=== PATIENT | female | born 1980 | race Caucasian/White ===

== ENCOUNTER 2017-03-28 23:24 | Emergency (ER) | payer SELFPAY ==
[~2017-03-28] VITALS: Ht 162.6 cm; Wt 96.0 kg
[2017-03-28 23:26] VITALS: BP 122/69; PULSE 84; RESP 16; TEMP 97.7; O2SAT 98
[2017-03-28] MEDS ORDERED: AMOX500T PO (23:56)
--- NOTE | 2017-03-28 23:59 | PD ---
HPI Chief Complaint: ENT Complaint Time Seen by Provider: 23:49 Travel History International Travel<30 days: No Contact w/Intl Traveler<30days: No Traveled to known affect area: No History of Present Illness HPI 37-year-old white female presents to emergency department complains of left facial swelling and swelling inside of her mouth over the last 3 days. She states that she's been on Cipro for the past week for a sinus infection. Her symptoms initially were sinus congestion and a runny nose and general malaise. She is on one more week of Cipro. In the last 3 days she developed pain in her left maxilla. She has poor dentition. She continues to smoke. [facility] Past Medical History Narrative Medical Dental caries, chronic sinus Tetanus Vaccination: < 5 Years LMP: 03-22-17 Social History Alcohol Use: Yes Tobacco Use: Yes Allergies-Medications (Allergen,Severity, Reaction): Coded Allergies: Sulfa (Sulfonamide Antibiotics) (Verified Allergy, Severe, Hives, 03/28/17 ) Review of Systems General / Constitutional: No: Fever Eyes: No: Visual changes HENT: Positive: Rhinorrhea, Congestion, Gingival Bleeding, Dental Difficulties , Earache, No: Headaches Cardiovascular: No: Chest Pain or Discomfort Respiratory: Positive: Cough, Wheezing, No: Shortness of Breath Gastrointestinal: No: Abdominal Pain Genitourinary: No: Dysuria Musculoskeletal: No: Pain Skin: No Rash Neurologic: No: Weakness Psychiatric: No: Depression Endocrine: No: Polydipsia Hematologic/Lymphatic: No: Easy Bruising Physical Exam Narrative GENERAL: Well-developed, well-nourished in no acute distress. Nontoxic appearing. HEAD: Normocephalic, atraumatic. EYES: Pupils equal round and reactive. Extraocular motions intact. No scleral icterus. No injection or drainage. ENT: TMs clear without erythema. The external auditory canals clear. Nose: clear . Posterior pharynx is pink and moist. No tonsillar edema or exudate. Uvula midline. Airway patent. Patient has a large dental abscess to the left upper maxilla in the area of her first and second premolars. There are multiple , multiple dental caries and periodontal disease. NECK: Trachea midline.Supple, nontender, moves head freely. No central bony tenderness or spasm. CARDIOVASCULAR: Regular rate and rhythm without murmurs, gallops, or rubs. RESPIRATORY: Mild expiratory wheezes diffusely. GASTROINTESTINAL: Abdomen soft, non-tender, nondistended. No hepato-splenomegaly , or palpable masses. No guarding. EXTREMITIES: No clubbing, cyanosis, or edema. No joint tenderness, effusion, or edema noted. BACK: Nontender without deformity or crepitance. No flank tenderness. Data Data Last Documented VS Vital Signs Date Time Temp Pulse Resp B/P (MAP) Pulse Ox O2 Delivery O2 Flow Rate FiO2 03/28/17 23:26 97.7 84 16 122/69 (86) 98 Room Air MDM Medical Decision Making Medical Screen Exam Complete: Yes Emergency Medical Condition: Yes Medical Record Reviewed: Yes Differential Diagnosis MDM: Moderate Differential diagnoses: Dental abscess, dental caries, osteitis, cellulitis Narrative Course This is dental abscess. Diagnosis Primary Impression: Dental abscess Patient Instructions: General Instructions Additional Instructions: Rest. [place] gargles. [place] oil on cotton balls. 3 Advil every 6 hours. Amoxicillin. Continue your Cipro for her sinuses. follow-up with a dentist as soon as possible. And return to the ER if any problems. Stop smoking. Med/Other Pt SpecificInfo: Prescription(s) given Scripts Amoxicillin (Amoxicillin) 500 Mg Tab 500 MG PO TID for Infection, #30 TAB 0 Refills Prov: Eunice Vallecillo 03/28/17 Disposition: 01 DISCHARGE HOME Condition: Stable Yassine Felix Mar 28, 2017 23:59
== END 2017-03-29 00:11 | disposition home or self-care (01) ==
LOC: NEPK 23:24
DX: K04.7 Periapical abscess without sinus (principal); Z72.0 Tobacco use
CPT/HCPCS: 99283